=== PATIENT | male | born 1985 | race African-American/Black ===

== ENCOUNTER 2018-01-08 06:27 | Emergency (ER) | payer OTHER ==
[2018-01-08 08:43] LABS: INFLUENZA A AMPLIFICATION POSITIVE (NEGATIVE); INFLUENZA B AMPLIFICATION NEGATIVE (NEGATIVE)
== END 2018-01-08 09:17 | disposition home or self-care (01) ==
LOC: M ED 06:27
DX: J09.X2 Influenza due to identified novel influenza A virus with other respiratory manifestations (principal)
CPT/HCPCS: 87502